=== PATIENT | female | born 1985 ===

== ENCOUNTER 2017-06-13 08:11 | Emergency (ER) | payer OTHER ==
[2017-06-13 08:13] VITALS: BP 117/81; PULSE 73; RESP 20; TEMP 98.5; O2SAT 100; BMI 30.9
--- NOTE | 2017-06-13 08:50 | ED PDOC ---
Upper Extremity Pain/Injury Time Seen by Provider: 06/13/17 08:15 Chief Complaint (Nursing): Weakness/Neurological Deficit Chief Complaint (Provider): Right hand numbness History Per: Patient History/Exam Limitations: no limitations, clinical condition Onset/Duration Of Symptoms: Other (weeks) Current Symptoms Are (Timing): Still Present Additional Complaint(s): Patient is a 31 y/o female presenting to the emergency department for right hand numbness since 2 a.m. today. Reports that the sensation is a chronic issue that comes and goes on both her hands, ongoing for the past several weeks. Also reports that she cannot flex the fingers of her right hand. Denies fever or other complaints. Of note, patient admits to having a current UTI, for which she is taking Macrobid. PCP: Dr. Collin Estrada Past Medical History Reviewed: Historical Data, Nursing Documentation, Vital Signs Vital Signs: Last Vital Signs Temp 98.5 F 06/13/17 08:12 Pulse 73 06/13/17 08:12 Resp 20 06/13/17 08:12 BP 117/81 06/13/17 08:12 Pulse Ox 100 06/13/17 08:12 - Medical History Other PMH: Urinary Tract Infection - Surgical History Surgical History: Appendectomy - Family History Family History: States: Unknown Family Hx - Social History Current smoker - smoking cessation education provided: No Ex-Smoker (has not smoked in the last 12 months): No Alcohol: Social Drugs: Denies - Home Medications Home Medications: Ambulatory Orders Medication Instructions Recorded Meloxicam [Meloxicam] 1 tab PO DAILY 05/09/15 Phenazopyridine HCl [Pyridium] 1 tab PO BID 05/09/15 Sulfamethoxazole/Trimethoprim 1 tab PO BID 05/09/15 [Bactrim DS Tab] Ibuprofen [Motrin] 600 mg PO Q8 #30 tab 05/10/15 oxyCODONE/Acetaminophen [Percocet 1 ea PO Q6 PRN #10 tab 05/10/15 5/325 mg Tab] Cephalexin [cephalexin] 500 mg PO Q8H #21 cap 11/13/16 - Allergies Allergies/Adverse Reactions: Allergies Allergy/AdvReac Type Severity Reaction Status Date / Time ciprofloxacin [From Cipro] Allergy RASH Verified 06/13/17 08:21 ciprofloxacin HCl Allergy RASH Verified 06/13/17 08:21 [From Cipro] Review of Systems ROS Statement: Except As Marked, All Systems Reviewed And Found Negative Constitutional: Negative for: Fever Neurological: Positive for: Numbness (right hand with limited flexion of fingers ) Physical Exam - Reviewed Nursing Documentation Reviewed: Yes Vital Signs Reviewed: Yes - Physical Exam Appears: Positive for: No Acute Distress Head Exam: Positive for: ATRAUMATIC, NORMAL INSPECTION, NORMOCEPHALIC Skin: Positive for: Normal Color, Warm, Dry Eye Exam: Positive for: Normal appearance Neck: Positive for: Normal, Painless ROM, Supple Cardiovascular/Chest: Positive for: Regular Rate, Rhythm. Negative for: Murmur Respiratory: Positive for: Normal Breath Sounds. Negative for: Accessory Muscle Use, Respiratory Distress Gastrointestinal/Abdominal: Positive for: Normal Exam, Soft Extremity: Positive for: Other (right hand numbness with limited flexion of fingers). Negative for: Pedal Edema Neurologic/Psych: Positive for: Alert, Oriented (x3) - Laboratory Results Result Diagrams: 06/13/17 08:45 06/13/17 08:45 - ECG O2 Sat by Pulse Oximetry: 100 (RA) Pulse Ox Interpretation: Normal Medical Decision Making Medical Decision Making: Time: 08:40 Initial impression: Right hand numbness- chronic Initial plan: CT Head scan w/o contrast Labs Reevaluation 09:10 CT Head scan reviewed. Findings noted as follows: HEMORRHAGE: No intracranial hemorrhage. BRAIN: No mass effect or edema. No atrophy or chronic microvascular ischemic changes. VENTRICLES: Unremarkable. No hydrocephalus. CALVARIUM: Unremarkable. PARANASAL SINUSES: Unremarkable as visualized. No significant inflammatory changes. MASTOID AIR CELLS: Unremarkable as visualized. No inflammatory changes. OTHER FINDINGS: None. IMPRESSION: Normal CT of the Head. 10:23 Patient feels better. Reports mild numbness on her fingers but now has full ROM. Denies weakness in other parts of her body. Discussed results of CT and the need to be cleared by a neurologist before returning to work. noted that given that it is bilateral intermittant and chronic unlikely to have central etiology. more likely peripheral nerve. Scribe Attestation: Documented by Elena Leo, acting as a scribe for Michelle Tucker MD. Provider Scribe Attestation: All medical record entries made by the Scribe were at my direction and personally dictated by me. I have reviewed the chart and agree that the record accurately reflects my personal performance of the history, physical exam, medical decision making, and the department course for this patient. I have also personally directed, reviewed, and agree with the discharge instructions and disposition. Disposition - Clinical Impression Clinical Impression: Hand paresthesia - Patient ED Disposition Is Patient to be Admitted: No Counseled Patient/Family Regarding: Studies Performed, Diagnosis, Need For Followup - Disposition Referrals: [facility] [Outside] Lb Trinidad MD [Medical Doctor] - Disposition: Routine/Home Disposition Time: 10:45 Condition: IMPROVED Additional Instructions: follow up with a neurologist as an outpatient in 1-2 days. you cannot return to work until cleared by neurologist. return to the ED with any worsening or concerning symptoms Instructions: Paresthesia (ED) Forms: [facility] (E[place]ian), [facility] ED School/Work Excuse
[2017-06-13 08:59] LABS: BASO % 0.5 % (0.0-2.0); EOS % 0.9 % (0.0-4.0); LYMPH # 1.3 K/uL (1.0-4.3); LYMPH % 36.1 % (20.0-40.0); MEAN CELL VOLUME 81.5 fl (81.0-99.0); MEAN CORPUSCULAR HEMOGLOBIN 26.2 pg (27.0-31.0); MEAN CORPUSCULAR HGB CONC 32.1 g/dL (33.0-37.0); MEAN PLATELET VOLUME 7.9 fl (7.2-11.7); MONO # 0.2 K/uL (0.0-0.8); MONO % 6.6 % (0.0-10.0); NEUT # 2.1 K/uL (1.8-7.0); NEUT % 55.9 % (50.0-75.0); WHITE BLOOD COUNT 3.7 K/uL (4.8-10.8)
[2017-06-13 09:10] LABS: ALB/GLOB RATIO 1.4 (1.0-2.1); ALKALINE PHOSPHATASE 64 U/L (38-126); ALT/SGPT 33 U/L (9-52); AST/SGOT 23 U/L (14-36); BILIRUBIN,TOTAL 0.4 mg/dl (0.2-1.3); BLOOD UREA NITROGEN 12 mg/dl (7-17); CALCIUM 8.9 mg/dL (8.4-10.2); CARBON DIOXIDE 26 mmol/L (22-30); CHLORIDE 106 mmol/L (98-107); GFR AFRICAN-AMERICAN > 60; GLUCOSE,RANDOM 105 mg/dL (65-105); POTASSIUM 4.2 MMOL/L (3.6-5.0); SODIUM 141 mmol/l (132-148); TOTAL PROTEIN 7.3 G/DL (6.3-8.2)
--- NOTE | 2017-06-13 09:12 | CT ---
PROCEDURE: CT HEAD WITHOUT CONTRAST. HISTORY: hand numbness COMPARISON: None available. TECHNIQUE: Axial computed tomography images were obtained through the head/brain without intravenous contrast. Radiation dose: Total exam DLP = 874 mGy-cm. This CT exam was performed using one or more of the following dose reduction techniques: Automated exposure control, adjustment of the mA and/or kV according to patient size, and/or use of iterative reconstruction technique. FINDINGS: HEMORRHAGE: No intracranial hemorrhage. BRAIN: No mass effect or edema. No atrophy or chronic microvascular ischemic changes. VENTRICLES: Unremarkable. No hydrocephalus. CALVARIUM: Unremarkable. PARANASAL SINUSES: Unremarkable as visualized. No significant inflammatory changes. MASTOID AIR CELLS: Unremarkable as visualized. No inflammatory changes. OTHER FINDINGS: None. IMPRESSION: Normal CT of the Head.
== END 2017-06-13 11:00 | disposition home or self-care (01) ==
LOC: H.ER 08:11
DX: R20.0 Anesthesia of skin (principal)